=== PATIENT | female | born 1975 | race Caucasian/White ===

== ENCOUNTER → 2017-06-13 | Outpatient (CLI) | payer BC ==
[~2017-06-13] MED LIST: CATAFLAM50 MG PO; CIPRO PO; PROTONIX PO
--- NOTE | ~2017-06-13 | NM19 ---
[facility] A Service of [facility] & [facility] RADIOLOGY TEXT RESULTS PATIENT: DASHAWN QUISPE LOCATION: [facility] : 75 UNIT #: [id number] AGE: [address]: Abad Corley MD SEX: F ORDER DR: [id number] [facility] [address] [place], [place] [address] [id number] O MR#: [id number] Acc #: [id number] NAME: DASHAWN QUISPE : 1975 SEX: F STUDY DATE/TIME: 06/13/2017 7:27 UNIT: [facility] ROOM: STUDY DESCRIPTION: NM Gastric Emptying Study Attending Physician: Abad Corley M.D. Referring Physician: Abad Corley M.D. Ordering Physician: Abad Corley M.D. Primary Care Physician: Reynold Ambriz M.D. MEDICAL IMAGING REPORT This report is preliminary unless electronic signature is present EXAM Gastric emptying scan 06/13/2017. HISTORY Nausea, vomiting, early satiety abdominal bloating and constipation and weight gain. Symptoms for 5 years worsening in the past year. FINDINGS The patient ingested 545 microcuries of technetium 99m tagged sulfur colloid in eggs. Images of the upper abdomen were obtained for 120 minutes. After 1 hour the stomach was 59% empty and after 2 hours the stomach was 94% empty. Normal ranges greater than 60% empty after 2 hours of imaging and greater than 90% empty after 4 hours of imaging. IMPRESSION Normal gastric emptying scan. Dictated by... Vin Montes M.D. THIS IS AN ELECTRONICALLY VERIFIED REPORT Vin Montes M.D. at 06/14/2017 7:17 AM KRT/benson TD: 06/13/2017 16:00 JOB #: [id number] MEDICAL IMAGING REPORT Page 1 of 1 COPY
== END | disposition home or self-care (01) ==
LOC: CNUC 06:48
DX: R68.81 Early satiety (principal); R11.2 Nausea with vomiting, unspecified
CPT/HCPCS: 78264; A9541